=== PATIENT | female | born 1940 | race Caucasian/White ===

== ENCOUNTER 2019-03-31 07:03 | Day surgery (SDC) ==
--- NOTE | 2019-03-30 11:57 | EKG Report ---
Test Performed on : 03/30/2019 11:31:02 AM Test Reason : PAT Blood Pressure : / mmHG Vent. Rate : 061 BPM Atrial Rate : 061 BPM P-R Int : 206 ms QRS Dur : 112 ms QT Int : 430 ms P-R-T Axes : 077 -35 -01 degrees QTc Int : 432 ms Sinus rhythm. with premature atrial complexes. in a pattern of bigeminy. Left axis deviation Incomplete right bundle branch block Abnormal ECG No previous ECGs available Confirmed by Matthew Rae MD ([id number]) on 03/31/2019 7:40:58 AM
[2019-03-31] MEDS ORDERED: LR 1,000 ML ONE (07:14)
[2019-03-31] MEDS ORDERED: KEFZOL 1 GM/D5W 1 GM/50 ML IVPB ONE (07:14)
[2019-03-31 08:04] LABS: HEMATOCRIT 38.4 % (37.0-47.0); HEMOGLOBIN 12.4 g/dL (12.0-16.0); MCH 31.6 PG (27-31); MCHC 32.3 g/dL (33-37); MPV 8.5 FL (7.4-10.4); RBC 3.92 XMIL (4.2-5.4); RDW 13.3 % (11.5-14.5); WBC 5.9 X1000 (4.8-10.8)
[2019-03-31] MEDS ORDERED: SENSORCAINE 0.25%/EPI 1:200,000 ONE (08:13)
[2019-03-31] MEDS ORDERED: METHYLENE BLUE 0.5% ONE (08:13)
[2019-03-31] MEDS ORDERED: ROBINUL ONE (08:14)
[2019-03-31] MEDS ORDERED: DIPRIVAN 1% ONE (08:14)
[2019-03-31] MEDS ORDERED: XYLOCAINE-MPF 2% ONE (08:14)
[2019-03-31 08:47] LABS: AGAP 13; BUN 14 mg/dL (8-22); CALCIUM 9.6 mg/dL (8.8-10.2); CHLORIDE 103 mmol/L (98-107); COSMO 284; CREATININE 0.7 mg/dL (0.5-0.9); ESTIMATED GFR > 60; GLUCOSE 98 mg/dL (70-104); POTASSIUM 3.6 mmol/L (3.5-5.1); SODIUM 142 mmol/L (136-145); TCO2 26 mmol/L (25-35)
[2019-03-31] MEDS ORDERED: OFIRMEV 1000 MG/ISOTONIC SOLN 1,000 MG/100 ML BOTTLE ONE (08:57)
[2019-03-31] MEDS ORDERED: ZOFRAN ONE (08:57)
[2019-03-31] MEDS: DILAUDID ONE ×2 (10:25→10:28)
--- NOTE | 2019-03-31 11:03 | OPERATIVE NOTE ---
PROCEDURE DATE: 03/31/2019 PREOPERATIVE DIAGNOSIS: Right breast cancer. POSTOPERATIVE DIAGNOSIS: Right breast cancer. PRINCIPAL PROCEDURE: 1. Injection of right periareolar blue dye for identification of right axillary sentinel lymph node. 2. Right total mastectomy. 3. Right axillary sentinel lymph node biopsy x1. SURGEON: Velma Livingston MD. ANESTHESIA: General. ESTIMATED BLOOD LOSS: 100 mL. DRAINS: Two 10 flat Jose-Alanis drains within the wound. INDICATIONS: Ms Jayashree Singh is a 78-year-old white female who is beginning to have dementia. She has been diagnosed with right breast cancer. We talked about surgical treatment options and with the family, we have chosen a right mastectomy with sentinel lymph node biopsy. FINDINGS: We found 1 axillary sentinel lymph node that was stained blue and when taken out of the right axilla, the 10 second counts were over 100,000. After removal of this sentinel lymph node, the counts in the right axilla decreased dramatically. On palpation of the right axilla, there were no other abnormal palpable lymph nodes. The tumor in the right breast is small and certainly it did not involve the underlying pectoralis major muscle or the skin. PROCEDURE: The patient, prior to surgery, underwent injection of the right breast with radioactive colloid per our Nuclear Medicine team. She was then taken to the operating room, where she received general anesthesia and was ventilated. Her right breast, shoulder and axilla were prepped and draped within the sterile field. She received Ancef prophylactically. I marked an elliptical incision encompassing her right breast which was mostly oriented transversely and included the nipple-areolar complex and our previous biopsy site. I injected 5 mL of periareolar methylene blue to help identify the right axillary sentinel lymph node. I then made my incision with a 10 blade scalpel. I used the cautery to create my flaps. My superior flap went to the clavicle, medial flap to the sternum, and the inferior flap to the inframammary fold. I then removed the breast from medial to lateral off the pectoralis major and minor muscles down to the serratus anterior. Prior to removing the breast from the axillary contents, I identified the right axillary sentinel lymph node using my Navigator. This lymph node was blue and had high 10 second counts out of the right axilla. This lymph node was removed using cautery from the axilla. I sent it as sentinel lymph node #1. The counts decreased dramatically using the Navigator in the right axilla after removal of the sentinel node. I removed the remainder of the tail of the right breast from the axillary contents and I sent the right breast and sentinel lymph node for permanent section. I placed two 10 flat Jose-Alanis drains, one within the axilla and one along the pectoralis major muscle. They were brought out through separate stab incisions and were secured to the skin with two 2-0 nylon stitches. I closed our wound after making sure all bleeding was controlled using cautery in 2 layers with 3-0 popoff Vicryl stitches to close the dermis and then the skin was closed with 4-0 Monocryl subcuticular stitch. Dressings were applied. She tolerated the procedure well. Plans are for her to go the recovery room and then be hospitalized overnight and then probably go to [facility]. I spoke with the family after the procedure. cc: Velma Livingston MD
[2019-03-31] MEDS ORDERED: PNEUMOVAX 23 IM ONE (15:21)
[2019-03-31] MEDS ORDERED: BUMEX PO PRN (15:32)
[2019-03-31] MEDS: NORCO-5 PO PRN ×2 (15:59→18:51)
[2019-03-31] MEDS: MOTRIN PO SCH ×2 (16:00→22:40)
[2019-03-31] MEDS ORDERED: ZOFRAN IV PRN (16:06)
[2019-03-31] MEDS ORDERED: TYLENOL PO SCH (17:00)
[2019-03-31] MEDS ORDERED: ARICEPT PO SCH (21:00)
[2019-03-31] MEDS ORDERED: PATIENT'S OWN MED PO SCH (21:00)
[2019-03-31] MEDS ORDERED: RISPERDAL PO SCH (21:00)
[2019-03-31 22:19] LABS: URINE SOURCE CLEAN CATCH
[2019-03-31] MEDS: TYLENOL PO SCH (22:40)
[2019-03-31] MEDS: PERIDEX MT SCH (22:42)
[2019-03-31 22:59] LABS: BILIRUBIN URINE NEGATIVE (NEGATIVE); BLOOD URINE NEGATIVE (NEGATIVE); COLOR YELLOW; GLUCOSE URINE NEGATIVE (NEGATIVE); KETONE URINE NEGATIVE (NEGATIVE); LEUKOCYTES URINE NEGATIVE (NEGATIVE); NITRITE URINE NEGATIVE (NEGATIVE); PH URINE 6.5; PROTEIN URINE NEGATIVE (NEGATIVE); SP GRAVITY URINE 1.009; TURBIDITY URINE CLEAR (CLEAR); UROBILINOGEN URINE NORMAL (NORMAL)
[2019-03-31 23:01] LABS: UR EPITHELIAL CELLS <10 /HPF (<10); URINE BACTERIA NEGATIVE /HPF; URINE RBC <10 /HPF (<10); URINE WBC <10 /HPF (<10)
[2019-04-01] MEDS: TYLENOL PO SCH ×2 (06:43→10:20)
--- NOTE | 2019-04-01 08:16 | Diag Imaging Result Doc PS360 ---
EXAM: CHEST-PORTABLE 04/01/2019 HISTORY: CXR for rehab TECHNIQUE: AP portable at 0805 COMMENT: There is a large hiatal hernia. There are no previous studies. There is cardiomegaly. There are surgical drains over the right lower chest. IMPRESSION: Hiatal hernia. Borderline cardiomegaly. Electronically signed by Yunier Galaviz 04/01/2019 8:14 AM
[2019-04-01] MEDS ORDERED: VITAMIN B-12 PO SCH (09:00)
[2019-04-01] MEDS ORDERED: PEPCID PO SCH (09:00)
[2019-04-01] MEDS ORDERED: HYDROCHLOROTHIAZIDE PO SCH (09:00)
[2019-04-01] MEDS ORDERED: DIOVAN PO SCH (09:00)
[2019-04-01] MEDS: MOTRIN PO SCH ×2 (10:19→11:42)
[2019-04-01] MEDS: PERIDEX MT SCH (10:20)
--- NOTE | 2019-04-01 13:05 | DISCHARGE SUMMARY ---
ADMISSION DATE: 03/31/2019 DISCHARGE DATE: 04/01/2019 ADMITTING DIAGNOSIS: Right breast cancer. DISCHARGE DIAGNOSIS: Right breast cancer. PRINCIPAL PROCEDURE: Right total mastectomy with right axillary sentinel lymph node biopsy on 03/31/2019. DISCHARGE DISABILITY: Full. DISCHARGE DIET: Regular. DISCHARGE DISPOSITION: She will return to our outpatient offices in 1 week for followup and drain removal. Plans are for her to go to [facility]. DISCHARGE MEDICATIONS: She is to return to her home medications. HOSPITAL COURSE: Ms. Jayashree Singh is a 78-year-old white female who has dementia. She has been diagnosed with right breast cancer. We have discussed surgical treatment options with her and her family and decided on a total mastectomy with sentinel lymph node biopsy. She was admitted on the day of surgery, 03/31/2019, and underwent a right total mastectomy with right axillary sentinel lymph node biopsy. Two drains were left at the time of surgery. The surgery went well and after surgery, she went to the recovery room and then to the [address] [place] [address] aceved[facility]. On postop day 1, there was no hematoma under her skin flaps involving the mastectomy. Her drains were not draining much fluid and the fluid was clearing. We left the wound dressed. She was tolerating a regular diet. Certainly, she could ambulate in the halls. DISCHARGE INSTRUCTIONS: Plans are to send her to [facility] and see her in my outpatient offices in a week to remove her LUIS drains. At discharge, we added no medications. She is just to continue her home medicines. She can take Tylenol or Advil for pain. We will discuss her pathology report at her return office visit. VITAL SIGNS AT DISCHARGE: At discharge, her heart rate was 70. Blood pressure was 121/61, O2 saturation 95%. She was afebrile. cc: Velma Livingston MD
[2019-04-01] MEDS: NORCO-5 PO PRN (15:36)
[2019-04-01 16:25] VITALS: BP 105/56
== END 2019-04-01 17:10 | disposition home or self-care (01) ==
LOC: OR 07:03 → 4N 07:03 → OR 04-01 17:10
PROVIDERS: ATTEND Surgery